=== PATIENT | male | born 1975 | race Caucasian/White ===

== ENCOUNTER 2020-05-09 13:55 | Inpatient (IN) | payer OTHER ==
--- OUTSIDE RECORDS SUMMARY | 2020-05-09 14:09 | XMS ---
:1975 Author Organization [facility] Support Name Relationship Address Phone UE Unavailable Unavailable Unavailable CHARITO ALLEN MOTHER [address] [place] [address] Re-disclosure Warning The records that you are about to access may contain information from federally- assisted alcohol or drug abuse programs. If such information is present, then the following federally mandated warning applies: This information has been disclosed to you from records protected by federal confidentiality rules (42 CFR part 2). The federal rules prohibit you from making any further disclosure of this information unless further disclosure is expressly permitted by the written consent of the person to whom it pertains or as otherwise permitted by 42 CFR part 2. A general authorization for the release of medical or other information is NOT sufficient for this purpose. The Federal rules restrict any use of the information to criminally investigate or prosecute any alcohol or drug abuse patient.The records that you are about to access may contain highly sensitive health information, the redisclosure of which is protected by Article 27-F of the [facility] Public Health law. If you continue you may haveaccess to information: Regarding HIV / AIDS; Provided by facilities licensed or operated by the [facility] Office of Mental Health; or Provided by the [facility] Office for People With Developmental Disabilities. If such information is present, then the following [facility] mandated warning applies: This information has been disclosed to you from confidential records which are protected by state law. State law prohibits you from making any further disclosure of this information without the specific written consent of the person to whom it pertains, or as otherwise permitted by law. Any unauthorized further disclosure in violation of state law may result in a fine or long term sentence or both. A general authorization for the release of medical or other information is NOT sufficient authorization for further disclosure. Insurance Providers Payer name Policy type Policy ID Covered Covered republican's Policy P bell / Coverage republican ID relationship to Driver Inf ormation type driver BEACON [id number] 000 [employer]-AFF
--- NOTE | 2020-05-09 14:29 | BHS.RME ---
2019 N Coronavirus Screen - COVID-19 Screening Questions Dx of COVID-19 or had a positive test in the last 4 weeks?: No Contact with known/suspected COVID patient in last 14 days?: No Any of these symptoms or contact with someone who has?: None Traveled domestically/internationally in the last 14 days?: No Screen score: 0 Screen result: Further Evaluation Substance Use & Tx History - Substance Use History Alcohol Substance amount: 2 beers Frequency of use: Daily Substance route: Oral Date of Last Use: 05/09/20 (started 1 month ago) Heroin Substance amount: 1/2 gram Frequency of use: Daily Substance route: Injection (ex: intravenous or skin popping) Date of Last Use: 05/08/20 (started age 19) Physical/Psych/Mental Status - Behavior Eye Contact: Normal - Cooperativeness Cooperativeness: Cooperative - Thinking Thought Processes: Tight, Logical, Goal Directed - Physical Health Problems Is patient presently having any pain?: No Does patient presently have any injuries (include location): No Does patient currently have a fever: No Is patient : No COWS - Scale Resting Pulse: 0= [place] 80 or Below Sweatin= Chills/Flushing Restless Observation: 1= Difficult to Sit Still Bone or Joint Aches: 4=Acute Joint/Muscle Pain Runny Nose/ Eye Tearin= Runny Nose/Eyes GI Upset > 30mins: 2= Nausea/Diarrhea Tremor Observation: 1= Tremor [place], Not Seen Yawning Observation: 1= 1-2x During Session Anxiety or Irritability: 1=Feels Anxious/Irritable Goose Flesh Skin: 3=Piloerection
--- NOTE | 2020-05-09 15:06 | HP ---
COWS - Scale Resting Pulse: 0= [place] 80 or Below Sweatin= Chills/Flushing Restless Observation: 1= Difficult to Sit Still Bone or Joint Aches: 4=Acute Joint/Muscle Pain Runny Nose/ Eye Tearin= Runny Nose/Eyes GI Upset > 30mins: 2= Nausea/Diarrhea Tremor Observation: 1= Tremor [place], Not Seen Yawning Observation: 1= 1-2x During Session Anxiety or Irritability: 1=Feels Anxious/Irritable Goose Flesh Skin: 3=Piloerection CIWA Score - Admission Criteria OAS Guidelines: Admission for Medically Managed Detox: Requires at least one of the followin. CIWA greater than 12 2. Seizures within the past 24 hours 3. Delirium tremens within the past 24 hours 4. Hallucinations within the past 24 hours 5. Acute intervention needed for co occurring medical disorder 6. Acute intervention needed for co occurring psychiatric disorder 7. Severe withdrawal that cannot be handled at a lower level of care (continued vomiting, continued diarrhea, abnormal vital signs) requiring intravenous medication and/or fluids 8. Admitting History and Physical - Smoking History Smoking history: Current every day smoker Have you smoked in the past 12 months: Yes Aproximately how many cigarettes per day: 10 Admission ROS [facility] Chief Complaint: " I want to stop getting high and I don't want to be on methadone. " History of Present Illness: 44 year old male with history of alcohol use disorder for one month only, opioid dependence former agonist therapy (methadone). He has history of endocarditis with 2 porcine valve replacements and depression that has never been assessed professionally. However, he is not currently suicidal and denies SA in the past. smokes 1/2 pack since age 19 cows=16 Original Note: 2018 N Coronavirus Screen - COVID-19 Screening Questions Dx of COVID-19 or had a positive test in the last 4 weeks?: No Contact with known/suspected COVID patient in last 14 days?: No Any of these symptoms or contact with someone who has?: None Traveled domestically/internationally in the last 14 days?: No Screen score: 0 Screen result: Further Evaluation Substance Use & Tx History - Substance Use History Alcohol Substance amount: 2 beers Frequency of use: Daily Substance route: Oral Date of Last Use: 05/09/20 (started 1 month ago) Heroin Substance amount: 1/2 gram Frequency of use: Daily Substance route: Injection (ex: intravenous or skin popping) Date of Last Use: 05/08/20 (started age 19) He last received methadone at [facility] 3 days ago Urine Tox: Patient has never overdose and does not carry narcan but has has a history of endocarditis He meets criteria for detox as he is still using intravenously, has left methadone program and high risk for overdose and sequelae as he's already had 2 valve replaced. Exam Limitations: No Limitations - Ebola screening Have you traveled outside of the country in the last 21 days: No Have you had contact with anyone from an Ebola affected area: No Have you been sick,other than usual withdrawal symptoms: No Do you have a fever: No - Review of Systems Constitutional: Chills EENT: reports: No Symptoms Reported Respiratory: reports: No Symptoms reported Cardiac: reports: No Symptoms Reported GI: reports: No Symptoms Reported : reports: No Symptoms Reported Musculoskeletal: reports: No Symptoms Reported Integumentary: reports: No Symptoms Reported Neuro: reports: Tremors Endocrine: reports: No Symptoms Reported Hematology: reports: No Symptoms Reported Psychiatric: reports: Judgement Intact, Mood/Affect Appropiate, Orientated x3, Agitated, Anxious Other Systems: Reviewed and Negative Patient History - Patient Medical History Hx Anemia: No Hx Asthma: No Hx Chronic Obstructive Pulmonary Disease (COPD): No Hx Cancer: No Hx Cardiac Disorders: No Hx Congestive Heart Failure: No Hx Hypertension: No Hx Hypercholesterolemia: No Hx Pacemaker: No HX Cerebrovascular Accident: No Hx Seizures: No Hx Dementia: No Hx Diabetes: No Hx Gastrointestinal Disorders: No Hx Liver Disease: No Hx Genitourinary Disorders: No Hx Sexually Transmitted Disorders: No Hx Renal Disease (ESRD): No Hx Thyroid Disease: No Hx Human Immunodeficiency Virus (HIV): No (tested 1 month ago negative) Hx Hepatitis C: No Hx Depression: Yes Hx Suicide Attempt: No Hx Bipolar Disorder: No Hx Schizophrenia: No - Patient Surgical History Past Surgical History: Yes Hx Cardiac Surgery: Yes (cardiac surgery 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) - PPD History Previous Implant?: Yes Documented Results: Negative w/o proof Implanted On Prior [facility] Admission?: No PPD to be Administered?: Yes - Smoking Cessation Smoking history: Current every day smoker Have you smoked in the past 12 months: Yes Aproximately how many cigarettes per day: 10 Hx Chewing Tobacco Use: No Initiated information on smoking cessation: Yes 'Breaking Loose' booklet given: 05/09/20 - Substances abused Alcohol Substance route: Oral Frequency: Daily Amount used: 2 beers Age of first use: 44 Date of last use: 05/09/20 Heroin Substance route: Injection Amount used: 1/2 gram Age of first use: 19 Date of last use: 05/08/20 Admission Physical Exam [facility] - Physical General Appearance: Yes: Mild Distress, Thin, Tremorous, Irritable, Sweating, Anxious HEENTM: Yes: EOMI, Hearing grossly Normal, Normal ENT Inspection, Normocephalic, Normal Voice, PORSHA, Pharynx Normal, Tm's normal Respiratory: Yes: Chest Non-Tender, Lungs Clear, Normal Breath Sounds, No Respiratory Distress, No Accessory Muscle Use Neck: Yes: No masses,lesions,Nodules, Supple, Trachea in good position Breast: Yes: Within Normal Limits Cardiology: Yes: Regular Rhythm, Regular Rate, S1, S2, Surgical Scar Abdominal: Yes: Normal Bowel Sounds, Non Tender, Flat, Soft Genitourinary: Yes: Within Normal Limits Back: Yes: Normal Inspection Musculoskeletal: Yes: full range of Motion, Gait Steady, Pelvis Stable Extremities: Yes: Normal Capillary Refill, Normal Inspection, Normal Range of Motion, Non-Tender Neurological: Yes: people manager II-XII NML intact, Fully Oriented, Alert, Motor Strength 5/5, Normal Mood/Affect, Normal Response Integumentary: Yes: Normal Color, Dry, Warm Lymphatic: Yes: Within Normal Limits Cleared for Admission [facility] - Detox or Rehab [facility] Level of Care: Medically Managed Detox Regimen/Protocol: Methadone Claeared for Rehab Admission: No Screened but not Admitted - Documentation of Visit Screened but not Admitted: No Breathalyzer - Breathalyzer Breathalyzer: 0 Vital Signs - Vital Signs Vital signs refused: No Temperature: 97.9 F Pulse Rate: 70 Respiratory Rate: 14 Blood Pressure: 119/77 BP Location: Right Arm Blood Pressure position: Sitting - Height Height: 5 ft 8 in - Weight Weight: 159 lb Weight measurement method: Standing scale - BMI Body Mass Index (BMI): 24.1 - Bowel Function Bowel Movement: No Urine Drug Screen - Test Device Lot number: [id number] Expiration date: 10/31/21 - Control Is test valid?: Yes - Results Drug screen NEGATIVE: No Urine drug screen results: FEN-Fentanyl, MOP-Opiates, MTD-Methadone Inpatient Rehab Admission - Rehab Decision to Admit Inpatient rehab admission?: No
[2020-05-09 15:20] VITALS: BMI 24.1
[2020-05-09] MEDS ORDERED: BISMUTH SUBSALICYLATE 524 MG/30 ML UD PO PRN (15:20)
[2020-05-09] MEDS ORDERED: NICOTINE POLACRILEX 2 MG GUM BUC PRN (15:20)
[2020-05-09] MEDS ORDERED: ACETAMINOPHEN 325 MG TABLET (FP) PO PRN ×2 (15:20)
[2020-05-09] MEDS ORDERED: METHADONE HCL 10 MG TABLET (FOR DETOX USE ONLY) PO ONE (15:20)
[2020-05-09] MEDS ORDERED: MENTHOL/PHENOL 1 EACH UD MM PRN (15:20)
[2020-05-09] MEDS ORDERED: cloNIDine HCL 0.1 MG TABLET PO PRN (15:20)
[2020-05-09] MEDS ORDERED: ONDANSETRON *ODT* 4 MG TABLET SL PRN (15:20)
[2020-05-09] MEDS ORDERED: MAGNESIUM HYDROX 2400MG/30ML ORAL SUSPENSION 30 ML CUP PO PRN (15:20)
[2020-05-09] MEDS ORDERED: MAG HYDROX/AL HYDROX/SIMETH 30 ML UNIT-DOSE CUP PO PRN (15:20)
[2020-05-09] MEDS ORDERED: MAGNESIUM CITRATE 300 ML BOTTLE PO PRN (15:20)
[2020-05-09] MEDS ORDERED: IBUPROFEN 400 MG TABLET (FP) PO PRN (15:20)
--- OUTSIDE RECORDS SUMMARY | 2020-05-09 16:54 | XMS ---
:1975 Author Organization [facility] Support Name Relationship Address Phone UE Unavailable Unavailable Unavailable CHARITO ALLEN MOTHER [address] [place] [address] Re-disclosure Warning The records that you are [...] is protected by Article 27-F of the [facility] Public Health law. If you continue you may haveaccess to information: Regarding HIV / AIDS; Provided by facilities licensed or operated by the [facility] Office of Mental Health; or Provided by the [facility] Office for People With Developmental Disabilities. If such information is present, then the following [facility] mandated warning applies: This information has [...] law may result in a fine or mcc sentence or both. A general authorization for the release of medical or other information is NOT sufficient authorization for further disclosure. Insurance Providers Payer name Policy type Policy ID Covered Covered republican's Policy P blel / Coverage republican ID relationship to Driver Inf ormation type driver BEACON [id number] 000 [employer]AFF
[2020-05-09] MEDS: NICOTINE 7 MG/24 HOURS TOPICAL PATCH TD SCH (17:38)
[2020-05-09] MEDS: PRENATAL VITAMINS W/ FOLIC ACID TABLET (FP) PO SCH (17:39)
[2020-05-09] MEDS: hydrOXYzine PAMOATE 25 MG CAPSULE (FP) PO SCH ×2 (18:38→22:43)
[2020-05-09] MEDS: THIAMINE HCL 100 MG TABLET (FP) PO SCH (22:43)
[2020-05-09] MEDS: MELATONIN 5 MG TABLETS PO SCH (22:44)
[2020-05-10] MEDS: hydrOXYzine PAMOATE 25 MG CAPSULE (FP) PO SCH ×3 (05:50→15:32)
[2020-05-10] MEDS ORDERED: METHADONE HCL 10 MG TABLET (FOR DETOX USE ONLY) ONE (08:45)
[2020-05-10] MEDS ORDERED: METHADONE HCL 5 MG TABLET (FOR DETOX USE ONLY) ONE (08:45)
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
[2020-05-10] MEDS ORDERED: METHADONE (DETOX) 20 MG, METHADONE (DETOX) 5 MG PO ONE (10:00)
[2020-05-10 10:06] LABS: ALBUMIN 3.4 g/dl (3.4-5.0); BILIRUBIN,TOTAL 0.5 mg/dL (0.2-1); BLOOD UREA NITROGEN 7.8 mg/dL (7-18); CALCIUM 8.9 mg/dL (8.5-10.1); CREATININE 0.9 mg/dL (0.55-1.3); POTASSIUM 3.9 mmol/L (3.5-5.1); TOT PROT 7.1 g/dl (6.4-8.2)
[2020-05-10 10:08] LABS: HEMATOCRIT 38.8 % (35.4-49); HEMOGLOBIN 12.6 GM/dL (11.7-16.9); MCH 26.4 pg (25.7-33.7); MCHC 32.5 g/dl (32.0-35.9); MEAN CELL VOLUME 81.4 fl (80-96); MEAN PLT VOLUME 10.1 fl (7.5-11.1); PLATELET COUNT 173 K/MM3 (134-434); RBC 4.77 M/mm3 (4.00-5.60); RDW 15.6 % (11.9-15.9); WHITE BLOOD COUNT 5.6 K/mm3 (4.0-10.0)
[2020-05-10] MEDS: NICOTINE 7 MG/24 HOURS TOPICAL PATCH TD SCH (10:53)
[2020-05-10] MEDS: PRENATAL VITAMINS W/ FOLIC ACID TABLET (FP) PO SCH (10:53)
--- NOTE | 2020-05-10 12:11 | PN ---
BHS COWS - Scale Resting Pulse: 0= [place] 80 or Below Sweatin= Chills/Flushing Restless Observation: 1= Difficult to Sit Still Pupil Size: 0= Normal to Room Light Bone or Joint Aches: 1= Mild Discomfort Runny Nose/ Eye Tearin= Nasal Congestion GI Upset > 30mins: 0= None Tremor Observation of Outstretched Hands: 1= Tremor [place], Not Seen Yawning Observation: 2= >3x During Session Anxiety or Irritability: 2=Irritable/Anxious Goose Flesh Skin: 3=Piloerection COWS Score: 12 BHS Progress Note (SOAP) Subjective: sweats interrupted sleep agitation i have a lump on my right forearm Objective: 05/10/20 12:02 Vital Signs Temperature 97.3 F L 05/10/20 09:34 Pulse Rate 64 05/10/20 09:34 Respiratory Rate 18 05/10/20 09:34 Blood Pressure 108/76 05/10/20 09:34 O2 Sat by Pulse Oximetry (%) 98 05/10/20 09:34 Laboratory Tests 05/10/20 05/10/20 05/10/20 07:50 07:50 07:50 WBC 5.6 RBC 4.77 Hgb 12.6 Hct 38.8 MCV 81.4 MCH 26.4 MCHC 32.5 RDW 15.6 Plt Count 173 MPV 10.1 Sodium 140 Potassium 3.9 Chloride 106 Carbon Dioxide 29 Anion Gap 5 L BUN 7.8 Creatinine 0.9 Est GFR (CKD-EPI)AfAm 119.13 Est GFR (CKD-EPI)NonAf 102.79 Random Glucose 85 Calcium 8.9 Total Bilirubin 0.5 AST 12 L ALT 13 Alkaline Phosphatase 60 Total Protein 7.1 Albumin 3.4 Syphilis Serology Non-reactive labs noted aaox3 ambulating no acute distress Assessment: 05/10/20 12:02 withdrawals right forearm assessed, lump noted, no redness to area. pt is complaining it hurts when he squeezes it. Pt was asked if he lifted something heavy or hurt it somehow pt denies of anything to cause the pain. pt was asked if he shoots heroin in the arm, pt denies and no s/s of track hand on that area. Pt was advised to put warm compress, motrin and analgesic balm and keep an eye on it. Pt was advised that if it continues to swell, redness noted on skin and/or extreme pain to advise his RN and a medical provider will make the determination to send him to [place] for evaluation. pt in agreement. Plan: continue detox analgesic balm ordered motrin 600mg prn warm compress to right forearm
--- NOTE | 2020-05-10 13:43 | EKG ---
Test Reason : Blood Pressure : / mmHG Vent. Rate : 066 BPM Atrial Rate : 066 BPM P-R Int : 142 ms QRS Dur : 128 ms QT Int : 402 ms P-R-T Axes : -09 073 042 degrees QTc Int : 421 ms NORMAL SINUS RHYTHM RIGHT BUNDLE BRANCH BLOCK ABNORMAL ECG NO PREVIOUS ECGS AVAILABLE Confirmed by TAVON REYES MD ([id number]) on 05/10/2020 1:42:54 PM Referred By: Confirmed By:TAOVN REYES MD
[2020-05-10] MEDS ORDERED: IBUPROFEN 600 MG TABLET (FP) PO PRN (14:24)
[2020-05-10] MEDS: METHYL SALICYLATE/MENTHOL OINT 30 GM TUBE TP SCH ×2 (15:28→22:43)
[2020-05-10] MEDS: MELATONIN 5 MG TABLETS PO SCH (22:43)
[2020-05-10] MEDS: THIAMINE HCL 100 MG TABLET (FP) PO SCH (22:43)
[2020-05-11] MEDS ORDERED: METHADONE HCL 10 MG TABLET (FOR DETOX USE ONLY) PO ONE (10:00)
[2020-05-11] MEDS: PRENATAL VITAMINS W/ FOLIC ACID TABLET (FP) PO SCH (10:36)
[2020-05-11] MEDS: METHYL SALICYLATE/MENTHOL OINT 30 GM TUBE TP SCH ×2 (10:37→23:10)
[2020-05-11] MEDS: NICOTINE 7 MG/24 HOURS TOPICAL PATCH TD SCH (10:38)
--- NOTE | 2020-05-11 16:53 | PN ---
BHS COWS - Scale Resting Pulse: 0= [place] 80 or Below Sweatin= Chills/Flushing Restless Observation: 1= Difficult to Sit Still Pupil Size: 0= Normal to Room Light Bone or Joint Aches: 1= Mild Discomfort Runny Nose/ Eye Tearin= None GI Upset > 30mins: 0= None Tremor Observation of Outstretched Hands: 0= None Yawning Observation: 1= 1-2x During Session Anxiety or Irritability: 2=Irritable/Anxious Goose Flesh Skin: 3=Piloerection COWS Score: 9 BHS Progress Note (SOAP) Subjective: Anxious, Sweating, Body Aches. Objective: Patient A & O X 3, Observed Ambulating on Detox Unit Unassisted. In No Acute Distress. 05/11/20 16:50 Vital Signs Temperature 96.4 F L 05/11/20 12:38 Pulse Rate 64 05/11/20 12:38 Respiratory Rate 18 05/11/20 12:38 Blood Pressure 96/58 L 05/11/20 12:38 O2 Sat by Pulse Oximetry (%) 98 05/11/20 12:38 Laboratory Tests 05/09/20 05/10/20 05/10/20 16:50 07:50 07:50 WBC 5.6 RBC 4.77 Hgb 12.6 Hct 38.8 MCV 81.4 MCH 26.4 MCHC 32.5 RDW 15.6 Plt Count 173 MPV 10.1 Sodium 140 Potassium 3.9 Chloride 106 Carbon Dioxide 29 Anion Gap 5 L BUN 7.8 Creatinine 0.9 Est GFR (CKD-EPI)AfAm 119.13 Est GFR (CKD-EPI)NonAf 102.79 Random Glucose 85 Calcium 8.9 Total Bilirubin 0.5 AST 12 L ALT 13 Alkaline Phosphatase 60 Total Protein 7.1 Albumin 3.4 Syphilis Serology COVID-19 (ANDREAS) Not detected 05/10/20 07:50 WBC RBC Hgb Hct MCV MCH MCHC RDW Plt Count MPV Sodium Potassium Chloride Carbon Dioxide Anion Gap BUN Creatinine Est GFR (CKD-EPI)AfAm Est GFR (CKD-EPI)NonAf Random Glucose Calcium Total Bilirubin AST ALT Alkaline Phosphatase Total Protein Albumin Syphilis Serology Non-reactive COVID-19 ([facility]REAS) Lab results noted. 05/11/20 16:56 Assessment: 05/11/20 16:56 WITHDRAWAL SYMPTOMS. Plan: Continue Detox Patient to be sent to [facility] ER for evaluation of swelling in Right forearm. See following BHS Progress note.
--- NOTE | 2020-05-11 17:04 | PN ---
Vasiliy Progress Note Note: Patient reports swelling in Right forearm X approx. last 2 weeks. Patient denies history of IVDU or of traumatic injury or known muscular strain at affected site. Patient reports intermittent pain at affected site, sometimes aggravated by use of right arm. Patient denies pain or sensations of numbness or tingling in right hand and fingers. Area of elevated swelling (approx. 2 inches in diameter) visualized at affected site, in forearm, slightly distal to cubital crease of right arm. No erythema, open wounds, bruising, or discharge noted at site. Affected area tender upon palpation. Report given to Dr. Rivera at [facility]. Patient to be taken via ambulance to [facility] for further ev aluation. Edilberto Cardona NP
[2020-05-11] MEDS: THIAMINE HCL 100 MG TABLET (FP) PO SCH (23:11)
[2020-05-11] MEDS: MELATONIN 5 MG TABLETS PO SCH (23:11)
[2020-05-12] MEDS: hydrOXYzine PAMOATE 25 MG CAPSULE (FP) PO PRN ×2 (00:49→19:20)
[2020-05-12] MEDS: METHOCARBAMOL 500 MG TABLET PO PRN ×2 (00:49→22:25)
[2020-05-12] MEDS ORDERED: METHADONE HCL 10 MG TABLET (FOR DETOX USE ONLY) ONE (09:02)
[2020-05-12] MEDS ORDERED: METHADONE HCL 5 MG TABLET (FOR DETOX USE ONLY) ONE (09:02)
[2020-05-12] MEDS ORDERED: METHADONE (DETOX) 10 MG, METHADONE (DETOX) 5 MG PO ONE (10:00)
[2020-05-12] MEDS: METHYL SALICYLATE/MENTHOL OINT 30 GM TUBE TP SCH ×2 (10:19→22:16)
[2020-05-12] MEDS: PRENATAL VITAMINS W/ FOLIC ACID TABLET (FP) PO SCH (10:19)
[2020-05-12] MEDS: NICOTINE 7 MG/24 HOURS TOPICAL PATCH TD SCH (10:19)
--- NOTE | 2020-05-12 12:08 | PN ---
BHS COWS - Scale Resting Pulse: 0= [place] 80 or Below Sweatin= Chills/Flushing Restless Observation: 0= Sits Still Pupil Size: 0= Normal to Room Light Bone or Joint Aches: 2= Severe Diffuse Aches Runny Nose/ Eye Tearin= None GI Upset > 30mins: 0= None Tremor Observation of Outstretched Hands: 1= Tremor [place], Not Seen Yawning Observation: 0= None Anxiety or Irritability: 2=Irritable/Anxious Goose Flesh Skin: 0=Smooth Skin COWS Score: 6 BHS Progress Note (SOAP) Subjective: Complaints of tremors, sweats, anxiety and joints aches. Objective: 05/12/20 12:07 Vital Signs 05/12/20 05/12/20 06:20 10:09 Temperature 96.9 F L 97.5 F L Pulse Rate 60 76 Respiratory 20 18 Rate Blood Pressure 110/72 115/77 O2 Sat by Pulse 98 98 Oximetry (%) Laboratory Last Values WBC 5.6 K/mm3 (4.0-10.0) 05/10/20 07:50 RBC 4.77 M/mm3 (4.00-5.60) 05/10/20 07:50 Hgb 12.6 GM/dL (11.7-16.9) 05/10/20 07:50 Hct 38.8 % (35.4-49) 05/10/20 07:50 MCV 81.4 fl (80-96) 05/10/20 07:50 MCH 26.4 pg (25.7-33.7) 05/10/20 07:50 MCHC 32.5 g/dl (32.0-35.9) 05/10/20 07:50 RDW 15.6 % (11.9-15.9) 05/10/20 07:50 Plt Count 173 K/MM3 (134-434) 05/10/20 07:50 MPV 10.1 fl (7.5-11.1) 05/10/20 07:50 Sodium 140 mmol/L (136-145) 05/10/20 07:50 Potassium 3.9 mmol/L (3.5-5.1) 05/10/20 07:50 Chloride 106 mmol/L (98-107) 05/10/20 07:50 Carbon Dioxide 29 mmol/L (21-32) 05/10/20 07:50 Anion Gap 5 MMOL/L (8-16) L 05/10/20 07:50 BUN 7.8 mg/dL (7-18) 05/10/20 07:50 Creatinine 0.9 mg/dL (0.55-1.3) 05/10/20 07:50 Est GFR (CKD-EPI)AfAm 119.13 05/10/20 07:50 Est GFR (CKD-EPI)NonAf 102.79 05/10/20 07:50 Random Glucose 85 mg/dL (74-106) 05/10/20 07:50 Calcium 8.9 mg/dL (8.5-10.1) 05/10/20 07:50 Total Bilirubin 0.5 mg/dL (0.2-1) 05/10/20 07:50 AST 12 U/L (15-37) L 05/10/20 07:50 ALT 13 U/L (13-61) 05/10/20 07:50 Alkaline Phosphatase 60 U/L (45-117) 05/10/20 07:50 Total Protein 7.1 g/dl (6.4-8.2) 05/10/20 07:50 Albumin 3.4 g/dl (3.4-5.0) 05/10/20 07:50 Syphilis Serology Non-reactive (NONREACTIVE) 05/10/20 07:50 COVID-19 (ANDREAS) Not detected (Not Detected) 05/09/20 16:50 Labs noted. Assessment: 05/12/20 12:08 Alert and oriented x3, in no acute respiratory distress. Full ROM, ambulating in unit without any assistance. Skin warm to touch without lesions. Withdrawal symptoms. Plan: Continue detox protocol.
[2020-05-12] MEDS: MELATONIN 5 MG TABLETS PO SCH (22:15)
[2020-05-12] MEDS: THIAMINE HCL 100 MG TABLET (FP) PO SCH (22:15)
[2020-05-13 09:35] VITALS: BP 119/78; PULSE 70; TEMP 97.8
[2020-05-13] MEDS ORDERED: METHADONE HCL 10 MG TABLET (FOR DETOX USE ONLY) PO ONE (10:00)
--- NOTE | 2020-05-13 10:22 | PN ---
BHS COWS - Scale Resting Pulse: 0= [place] 80 or Below Sweatin= Chills/Flushing Restless Observation: 0= Sits Still Pupil Size: 0= Normal to Room Light Bone or Joint Aches: 0= None Runny Nose/ Eye Tearin= None GI Upset > 30mins: 0= None Tremor Observation of Outstretched Hands: 0= None Yawning Observation: 0= None Anxiety or Irritability: 0= None Goose Flesh Skin: 0=Smooth Skin COWS Score: 1 S Progress Note (SOAP) Subjective: feeling better Objective: 05/13/20 11:03 Vital Signs Temperature 97.8 F 05/13/20 08:41 Pulse Rate 70 05/13/20 08:41 Respiratory Rate 20 05/13/20 08:41 Blood Pressure 119/78 05/13/20 08:41 O2 Sat by Pulse Oximetry (%) 95 05/13/20 08:41 aaox3 ambulating no acute distress Assessment: 05/13/20 11:04 no s/s withdrawal sx Plan: d/c today
[2020-05-13] MEDS: NICOTINE 7 MG/24 HOURS TOPICAL PATCH TD SCH (10:23)
[2020-05-13] MEDS: PRENATAL VITAMINS W/ FOLIC ACID TABLET (FP) PO SCH (10:23)
[2020-05-13] MEDS: METHYL SALICYLATE/MENTHOL OINT 30 GM TUBE TP SCH (10:23)
--- NOTE | 2020-05-13 11:07 | DS ---
[facility] Summary Admission Date: 05/09/20 Discharge Date: 05/13/20 - History Present History: Opioid Dependence - Physical Exam Results Vital Signs: Vital Signs Temperature 97.8 F 05/13/20 08:41 Pulse Rate 70 05/13/20 08:41 Respiratory Rate 20 05/13/20 08:41 Blood Pressure 119/78 05/13/20 08:41 O2 Sat by Pulse Oximetry (%) 95 05/13/20 08:41 Pertinent Admission Physical Exam Findings: Vital Signs Temperature 97.8 F 05/13/20 08:41 Pulse Rate 70 05/13/20 08:41 Respiratory Rate 20 05/13/20 08:41 Blood Pressure 119/78 05/13/20 08:41 O2 Sat by Pulse Oximetry (%) 95 05/13/20 08:41 Laboratory Tests 05/09/20 05/10/20 05/10/20 16:50 07:50 07:50 WBC 5.6 RBC 4.77 Hgb 12.6 Hct 38.8 MCV 81.4 MCH 26.4 MCHC 32.5 RDW 15.6 Plt Count 173 MPV 10.1 Sodium 140 Potassium 3.9 Chloride 106 Carbon Dioxide 29 Anion Gap 5 L BUN 7.8 Creatinine 0.9 Est GFR (CKD-EPI)AfAm 119.13 Est GFR (CKD-EPI)NonAf 102.79 Random Glucose 85 Calcium 8.9 Total Bilirubin 0.5 AST 12 L ALT 13 Alkaline Phosphatase 60 Total Protein 7.1 Albumin 3.4 Syphilis Serology COVID-19 (ANDREAS) Not detected 05/10/20 07:50 WBC RBC Hgb Hct MCV MCH MCHC RDW Plt Count MPV Sodium Potassium Chloride Carbon Dioxide Anion Gap BUN Creatinine Est GFR (CKD-EPI)AfAm Est GFR (CKD-EPI)NonAf Random Glucose Calcium Total Bilirubin AST ALT Alkaline Phosphatase Total Protein Albumin Syphilis Serology Non-reactive COVID-19 (ANDREAS) aaox3 ambulating no acute distress lungs cta - Treatment Hospital Course: Detox Protocol Followed, Detoxed Safely, Responded well, Discharged Condition Good, Rehab Referral Accepted - Medication Discharge Medications: Ambulatory Orders NK [No Known Home Medication] 05/09/20 - Diagnosis (1) Substance induced mood disorder Current Visit: Yes Status: Acute (2) Substance-induced sleep disorder Current Visit: Yes Status: Acute (3) Uncomplicated opioid dependence Current Visit: Yes Status: Chronic (4) Mood disorder Current Visit: Yes Status: Chronic (5) Schizophrenia Current Visit: Yes Status: Ruled-out (6) Substance-induced psychotic disorder Current Visit: Yes Status: Ruled-out (7) 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
[2020-05-14] MEDS ORDERED: METHADONE HCL 5 MG TABLET (FOR DETOX USE ONLY) PO ONE (06:00)
== END 2020-05-13 12:14 | disposition home or self-care (01) | DRG 773 ==
LOC: YASAS 13:55 → Y6N 16:50
PROVIDERS: ADMIT Allergy & Immunology; ATTEND Allergy & Immunology
PROC: HZ2ZZZZ Detoxification Services for Substance Abuse Treatment (ICD-10-PCS; principal; 2020-05-09)
DX: F11.23 Opioid dependence with withdrawal (principal); F10.230 Alcohol dependence with withdrawal, uncomplicated; F17.210 Nicotine dependence, cigarettes, uncomplicated; F19.282 Other psychoactive substance dependence with psychoactive substance-induced sleep disorder; F19.24 Other psychoactive substance dependence with psychoactive substance-induced mood disorder; F39 Unspecified mood [affective] disorder; R22.31 Localized swelling, mass and lump, right upper limb; Z95.4 Presence of other heart-valve replacement; Z86.79 Personal history of other diseases of the circulatory system; Z91.410 Personal history of adult physical and sexual abuse; Z56.0 Unemployment, unspecified; Z59.0 Homelessness
CPT/HCPCS: 36415; 80053; 85027; 86780; 93005; 93010; C9803; U0003

== ENCOUNTER 2020-05-11 19:30 | Emergency (ER) | payer OTHER ==
[2020-05-11 19:39] VITALS: BP 126/88; PULSE 78; TEMP 98.3; BMI 25.0
--- OUTSIDE RECORDS SUMMARY | 2020-05-11 19:42 | XMS ---
:1975 Author Organization [facility] Support Name Relationship Address Phone UE Unavailable Unavailable Unavailable CHARITO ALLEN MOTHER [address] [place] [address] Re-disclosure Warning The records that you are [...] is protected by Article 27-F of the [facility] Public Health law. If you continue you may haveaccess to information: Regarding HIV / AIDS; Provided by facilities licensed or operated by the [facility] Office of Mental Health; or Provided by the [facility] Office for People With Developmental Disabilities. If such information is present, then the following [facility] mandated warning applies: This information has been [...] law may result in a fine or fdc sentence or both. A general authorization for the release of medical or other information is NOT sufficient authorization for further disclosure. Insurance Providers Payer name Policy type Policy ID Covered Covered libertarian's Policy P bell / Coverage libertarian ID relationship to Driver Inf ormation type driver AFFINITY [id number] SP [id number] 000 BEACON [id number] SP [id number] 000 HEALTH STRGY-AFF
--- NOTE | 2020-05-11 19:59 | PDOC ---
History of Present Illness - General Chief Complaint: Edema Stated Complaint: RIGHT ARM SWELLING Time Seen by Provider: 05/11/20 19:43 History Source: Patient Exam Limitations: No Limitations - History of Present Illness Initial Comments: 05/11/20 19:52 Patient is a 44-year-old male who presents to the ED with a mass that he noticed to the right proximal forearm on the volar aspect for the last 10 days. He denies any fevers or chills. The patient states he has been doing IV heroin but denies injecting in that region. He admits to having tenderness to that area. He denies any numbness or tingling. The patient is at [facility] and has been there for the last 4 days. The patient denies any past medical history or allergies to medications. 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) - Reproductive History Testicular Surgery: No - Psycho-Social/Smoking History Smoking History: Unknown if ever smoked Have you smoked in the past 12 months: No Number of Cigarettes Smoked Daily: 10 Information on smoking cessation initiated: No 'Breaking Loose' booklet given: 05/09/20 - Substance Abuse Hx (Audit-C & DAST Scrn) How often the patient has a drink containing alcohol: Monthly or less Number of drinks the patient has on a typical day: 1 or 2 How often the patient has six or more drinks on one occasion: Never Score: In Men: 4 or > Positive; In Women: 3 or > Positive: 1 Screen Result (Pos requires Nsg. Audit-10AR): Negative In the last yr the pt used illegal drug/Rx for NonMed reason: No Score: Yes response is considered Positive: 0 Screen Result (Positive result requires Nsg. DAST-10): Negative Review of Systems - Review of Systems Comments:: 05/11/20 19:59 - Review of Systems Able to Perform ROS?: Yes Constitutional: No: Fever, Chills, Loss of Appetite, Night Sweats, Weakness HEENTM: No: Eye Pain, Vision changes, Ear Pain, Throat Pain, Throat Swelling, Mouth Pain, Difficulty Swallowing Respiratory: No: Cough, Shortness of Breath, Wheezing, Sputum Production Cardiac (ROS): No: Chest Pain, Chest Tightness, Palpitations, Irregular Heart Beat, Edema ABD/GI: No: Nausea, Vomiting, Abdominal Pain, Diarrhea : No Dysuria, No Hematuria, No Frequency, No Urgency Musculoskeletal: No: Muscle Pain, Back Pain, Joint Pain, Muscle Weakness, Neck Pain; positive: Soft tissue mass to the right forearm Integumentary: No: Lesions, Rash Neurological: No: Headache, Numbness, Tingling, Weakness, Speech Difficulties *Physical Exam - Vital Signs Last Vital Signs Temp Pulse Resp BP Pulse Ox 98.3 F 78 20 126/88 99 05/11/20 19:33 05/11/20 19:33 05/11/20 19:33 05/11/20 19:33 05/11/20 19:33 - Physical Exam 05/11/20 20:00 - Physical Exam General Appearance: Nourished, Appropriately Dressed, No Distress HEENT: EOMI, Normal Voice, Hearing Grossly Normal Neck: Supple, No Lymphadenopathy (R), No Lymphadenopathy (L), No Rigidity, No Decreased range of motion Respiratory/Chest: Lungs Clear, Normal Breath Sounds. No Respiratory Distress, No Accessory Muscle Use Cardiovascular: Regular Rhythm, Regular Rate, S1, S2 Musculoskeletal: Normal Inspection. No Decreased Range of Motion; there is a moderate-sized soft tissue mass appreciated to the volar aspect of the right forearm just distal to the right AC. No significant tenderness to palpation. No warmth to touch. No crepitus. The mass feels nonmobile. Sensation intact to the radial, median and ulnar nerve distributions. Patient able to move all fingers freely. Brisk capillary refill distally <2 seconds. Extremity: Normal Capillary Refill, Normal Inspection Integumentary: Normal Color, Dry. No Rash Neurologic: raw products director II-XII NML intact, Fully Oriented, Alert, Normal Mood/Affect, N ormal Response ED Treatment Course - RADIOLOGY Radiology Studies Ordered: Category Date Time Status DUPLEX VASCUL US-1 ARM [US] Stat Ultrasound 05/11/20 19:50 Ordered Medical Decision Making - Medical Decision Making 05/11/20 20:01 Assessment: Patient is a 44-year-old male with a right forearm soft tissue mass. Plan: -Duplex of the right upper extremity ordered -Will reassess 05/11/20 20:48 The material handling technician called and states she notices a an aneurysm extending down the distal brachial artery with partial thrombosis. She is sending the ultrasound imaging on-call and the patient is pending an imaging on-call read. The patient has been upgraded to the main emergency room and has been endorsed to Dr. Lyman for further evaluation and treatment. Upon repeat evaluation the patient states that maybe a window fell on his forearm but nothing that he can remember causing trauma to his forearm. The patient continues to have brisk capillary refill less than 2 seconds. Radial and brachial pulses are palpable 2+. Full range of motion of all fingers. Discharge - Discharge Information Problems reviewed: Yes Clinical Impression/Diagnosis: Right axillary swelling - Follow up/Referral - Patient Discharge Instructions - Post Discharge Activity
--- NOTE | 2020-05-11 21:41 | PDOC ---
*Physical Exam - Vital Signs Last Vital Signs Temp Pulse Resp BP Pulse Ox 98.3 F 78 20 126/88 99 05/11/20 19:33 05/11/20 19:33 05/11/20 19:33 05/11/20 19:33 05/11/20 19:33 Medical Decision Making - Medical Decision Making 05/11/20 21:38 pt was signed out to Dr. Lyman and 44M c/o mass to the right proximal forearm, volar aspect, for the last 10 days. He endorses IV heroin use but no injection to affected area. He denies any fevers or chills. [facility] patient for detox. [] f/u US read 05/11/20 21:40 [facility] US IMPRESSION EXAM: Right upper extremity venous duplex ultrasound IMAGES: 37 DATE OF EXAM: 2020-05-11 20:03:03 REASON FOR EXAM: Rule out DVT COMPARISON: None. FINDINGS: No evidence for deep venous thrombosis. *Approximately 1.6 cm hypervascular mass in the antecubital fossa resembling a pseudoaneurysm. THIS DOCUMENT HAS BEEN ELECTRONICALLY SIGNED Messi Cardenas MD 05/11/2020 21:24 EST M.D. Please call Imaging Pre Press Operator [phone]) with questions. INTERPRETING RADIOLOGIST: Messi Cardenas MD Electronically Signed: May 11, 2020 09:26PM EDT Will c/s vascular surgery 05/11/20 22:11 pt has nonerythematous approximately 3x3cm swelling of the right forearm near AC fossa with FROM of the hand and RUE. Afebrile. Denies injection into RUE. dw Dr. Alfaro who recommends f/u in vascular clinic on Wednesday. dw return precautions, results, and recs w/ patient who expresses understanding and is amenable to return to [facility] w/ vasc. clinic f/u on wednesday Discharge - Discharge Information Problems reviewed: Yes Clinical Impression/Diagnosis: Right axillary swelling, Pseudoaneurysm of artery of upper extremity Condition: Good Disposition: TRANSFER ACUTE CARE/OTHER HOSP - Admission No - Follow up/Referral Referrals: Yahir Alfaro MD [Staff Physician] - Familia Ortiz MD [Non Staff, Medical] - - Patient Discharge Instructions Additional Instructions: The ultrasound of your arm found a pseudoaneursym. The vascular surgeon would like to follow up in clinic on Wednesday (05/13/20), see if the [facility] center can help arrange clinic follow up for you. See your primary care doctor in the next 5-10 days for follow up care. Return to the Emergency Department if you experience new or worsening symptoms, including but not limited to: - redness in the area - rapid growth of the area - loss of sensation or motor function - extreme pain - Post Discharge Activity
--- NOTE | 2020-05-11 22:26 | PDOC ---
*Physical Exam - Vital Signs Last Vital Signs Temp Pulse Resp BP Pulse Ox 98.3 F 78 20 126/88 99 05/11/20 19:33 05/11/20 19:33 05/11/20 19:33 05/11/20 19:33 05/11/20 19:33 Medical Decision Making - Medical Decision Making 05/11/20 22:25 Pt signed out to me pt hit his elbow against a window or glass 10 days ago and now has a pseudoaneurysm at the site. He can follow with [facility] surgery Nothing to do at this time. Discharge - Discharge Information Problems reviewed: Yes Clinical Impression/Diagnosis: Right axillary swelling, Pseudoaneurysm of artery of upper extremity Condition: Good Disposition: TRANSFER ACUTE CARE/OTHER HOSP - Follow up/Referral Referrals: Familia Ortiz MD [Non Staff, Medical] - Yahir Alfaro MD [Staff Physician] - - Patient Discharge Instructions Additional Instructions: The ultrasound of your arm found a pseudoaneursym. The vascular surgeon would like to follow up in clinic on Wednesday (05/13/20), see if the [facility] center can help arrange clinic follow up for you. See your primary care doctor in the next 5-10 days for follow up care. Return to the Emergency Department if you experience new or worsening symptoms, including but not limited to: - redness in the area - rapid growth of the area - loss of sensation or motor function - extreme pain - Post Discharge Activity
== END 2020-05-11 23:47 | disposition short-term general hospital (02) ==
LOC: JER 19:30
DX: R22.31 Localized swelling, mass and lump, right upper limb (principal)
CPT/HCPCS: 93971; 99284-25